=== PATIENT | male | born 1965 | race Caucasian/White ===

== ENCOUNTER 2017-05-13 07:34 | Emergency (ER) | payer MEDICARE, OTHER ==
[~2017-05-13] VITALS: Ht 180.3 cm; Wt 72.6 kg
[~2017-05-13 07:34] MED LIST: ACET500; AMOCLA875 PO; ANTOXYBENA BOTHEARS; ASPI325EC PO; ATOR10 PO; Amoxicillin500 MG PO; CARB200; CYCL10 PO; DIAZ5; DIAZ5 PO; HYDACE10B PO; HYDMOR2; HYDMOR4 PO; Humalog100 UNIT/3; IBUP800 PO; INSLI100I SC; INSLIS75I; INSLIS75I SC; INSULANI SC; INSULANI SQ; INSULANPEN SC; LAMO100; LEVFLO500 PO; LISI5; METO50 PO; MORP30ER; MORP30ER PO; NAPR500 PO; NAPR550 PO; OXYACE5T PO; OXYC10TA19 PO; OXYC5 PO; OXYCODONE PO; PHENY100ER PO; PROM25 PO; PROM25S PR; Percocet 5-3251 EACH PO; TRAM50; TRAM50 PO; Ultram50 MG PO
[2017-05-13] MEDS ORDERED: TOUJEO SOL300 UNIT/1 (07:54)
[2017-05-13] MEDS ORDERED: Roxicodone15 MG PO (07:55)
[2017-05-13] MEDS ORDERED: Omeprazole20 M1 PO (07:55)
[2017-05-13] MEDS ORDERED: ERYT1OIN LEFTEYE (08:36)
[2017-05-13] MEDS ORDERED: Norco 5-325 Ta1 EACH PO (08:36)
== END 2017-05-13 08:50 | disposition home or self-care (01) ==
LOC: ER 07:34
DX: S05.02XA Injury of conjunctiva and corneal abrasion without foreign body, left eye, initial encounter (principal); E11.9 Type 2 diabetes mellitus without complications; F17.200 Nicotine dependence, unspecified, uncomplicated; Z91.041 Radiographic dye allergy status; Z88.5 Allergy status to narcotic agent; Z79.899 Other long term (current) drug therapy; Z79.4 Long term (current) use of insulin; X58.XXXA Exposure to other specified factors, initial encounter
CPT/HCPCS: 99283

== ENCOUNTER 2017-05-13 15:25 | Emergency (ER) | payer MEDICARE, OTHER ==
[~2017-05-13] VITALS: Ht 180.3 cm; Wt 72.6 kg
[~2017-05-13 15:25] MED LIST changes: +ERYT1OIN LEFTEYE; +Norco 5-325 Ta1 EACH PO; +Omeprazole20 M1 PO; +Roxicodone15 MG PO; +TOUJEO SOL300 UNIT/1
== END 2017-05-13 16:40 | disposition home or self-care (01) ==
LOC: ER 15:25
DX: S05.02XA Injury of conjunctiva and corneal abrasion without foreign body, left eye, initial encounter (principal); E11.9 Type 2 diabetes mellitus without complications; F17.200 Nicotine dependence, unspecified, uncomplicated; Z91.041 Radiographic dye allergy status; Z88.5 Allergy status to narcotic agent; Z79.899 Other long term (current) drug therapy; Z79.4 Long term (current) use of insulin; X58.XXXA Exposure to other specified factors, initial encounter
CPT/HCPCS: 96372; 99283; J1885

== ENCOUNTER → 2017-08-17 | Outpatient (CLI) | payer MEDICARE, OTHER ==
[2017-08-17 11:07] LABS: BASOPHILS ABSOLUTE AUTO 0.04 K/mm3 (0.00-0.23); BASOPHILS PERCENT AUTO 1 % (0-2); EOSINOPHILS ABSOLUTE AUTO 0.14 K/mm3 (0.00-0.68); EOSINOPHILS PERCENT AUTO 2 % (0-6); Hematocrit 39.8 % (37.0-53.0); Hemoglobin 14.4 g/dL (13.5-17.5); IMMATURE GRAN ABSOLUTE AUTO 0.02 K/mm3 (0.00-0.10); IMMATURE GRAN PERCENT AUTO 0 % (0-1); LYMPHOCYTES ABSOLUTE AUTO 2.04 K/mm3 (0.84-5.20); LYMPHOCYTES PERCENT AUTO 29 % (21-46); MONOCYTES ABSOLUTE AUTO 0.61 K/mm3 (0.16-1.47); MONOCYTES PERCENT AUTO 9 % (4-13); Mean Corpuscular HGB 33.6 pg (26.0-34.0); Mean Corpuscular HGB Conc 36.2 g/dL (31.5-36.5); Mean Corpuscular Volume 93 fL (80-100); Mean Platelet Volume 10.6 fL (9.1-12.4); NEUTROPHILS ABSOLUTE AUTO 4.23 K/mm3 (1.96-9.15); NEUTROPHILS PERCENT AUTO 60 % (41-73); Platelet Count 216 K/mm3 (150-400); RDW Coefficient Variation 12.5 % (11.7-14.2); RDW Standard Deviation 42.4 fL (35.1-46.3); Red Blood Cell Count 4.29 M/mm3 (4.30-5.90); White Blood Cell Count 7.08 K/mm3 (4.00-11.30)
[2017-08-17 11:25] LABS: Alanine Aminotransfer (ALT/SGP 47 U/L (12-78); Albumin/Globulin Ratio 1.4 (0.8-1.8); Alk Phos 50 U/L (40-126); Amylase, Blood 52 U/L (25-115); Anion Gap 6 mmol/L (6-16); Aspartate Aminotrans (AST/SGOT 38 U/L (12-37); Bilirubin, Total 0.4 mg/dL (0.1-1.0); Blood Urea Nitrogen 17 mg/dL (8-24); CO2, Blood 28 mmol/L (21-32); Calcium, Blood 8.7 mg/dL (8.5-10.1); Chloride, Blood 102 mmol/L (98-108); Creatinine, Blood 0.85 mg/dL (0.60-1.20); Globulin, Blood 2.9 g/dL (2.2-4.0); Glomerular Filtration Rate >60 (60-); Glucose, Blood 204 mg/dL (70-99); Potassium, Blood 4.4 mmol/L (3.5-5.5); Sodium, Blood 136 mmol/L (136-145); Total Protein, Blood 6.9 g/dL (6.4-8.2)
== END | disposition home or self-care (01) ==
LOC: LAB SHORT 11:01 → LAB EV 11:01
PROVIDERS: General Practice
DX: E10.65 Type 1 diabetes mellitus with hyperglycemia (principal)
CPT/HCPCS: 80053; 82150; 83690; 85025

== ENCOUNTER 2018-03-07 07:54 | Day surgery (SDC) | payer MEDICARE, OTHER ==
[~2018-03-07] VITALS: Ht 180.3 cm; Wt 76.7 kg
[~2018-03-07 07:54] MED LIST changes: -TOUJEO SOL300 UNIT/1; +TOUJEO SOL300 UNIT/1 SC
--- NOTE | 2018-03-07 08:43 | NUR ---
03/07/18 0843 Catrina Chand V PT RESTING IN BED, SIDE RAILS IN PLACE, CALL LIGHT WITHIN REACH, VSS. PT DENIES ANY QUESTIONS AT THIS TIME.
== END 2018-03-07 09:58 | disposition home or self-care (01) ==
LOC: ORSCSDS 07:54
PROVIDERS: Surgery
PROC: 0DBN8ZX Excision of Sigmoid Colon, Via Natural or Artificial Opening Endoscopic, Diagnostic (ICD-10-PCS; principal; 2018-03-07 09:15)
DX: Z12.11 Encounter for screening for malignant neoplasm of colon (principal); D12.5 Benign neoplasm of sigmoid colon; Z86.010 Personal history of colon polyps; E10.9 Type 1 diabetes mellitus without complications; I48.0 Paroxysmal atrial fibrillation; I10 Essential (primary) hypertension; F17.210 Nicotine dependence, cigarettes, uncomplicated; Z79.4 Long term (current) use of insulin
CPT/HCPCS: 82947; 88305; J7120

== ENCOUNTER 2019-01-25 20:00 | Emergency (ER) | payer MEDICARE, OTHER ==
[~2019-01-25] VITALS: Ht 180.3 cm; Wt 74.8 kg
== END 2019-01-25 21:08 | disposition home or self-care (01) ==
LOC: ER 20:00
DX: S63.283A Dislocation of proximal interphalangeal joint of left middle finger, initial encounter (principal); E11.9 Type 2 diabetes mellitus without complications; F17.200 Nicotine dependence, unspecified, uncomplicated; Z91.041 Radiographic dye allergy status; Z88.5 Allergy status to narcotic agent; Z79.4 Long term (current) use of insulin; W01.0XXA Fall on same level from slipping, tripping and stumbling without subsequent striking against object, initial encounter
CPT/HCPCS: 26770; 73120; 73140; 99283-25

== ENCOUNTER 2019-10-27 19:50 | Emergency (ER) | payer MEDICARE ==
[~2019-10-27] VITALS: Ht 177.8 cm; Wt 63.5 kg
[2019-10-27 20:20] LABS: Source, Urine Clean Catch
[2019-10-27 20:23] LABS: Bilirubin, Urine Neg (Neg); Blood, Urine Neg (Neg); Glucose Qualitative, Urine Neg (Neg); Ketones, Urine Neg (Neg); Leukocyte Esterase, Urine Neg (Neg); Nitrite, Urine Neg (Neg); Protein, Urine Neg (Neg); Specific Gravity, Urine 1.005 (1.003-1.022); Urobilinogen, Urine NORM (Normal)
[2019-10-27 20:24] LABS: BASOPHILS ABSOLUTE AUTO 0.06 K/mm3 (0.00-0.23); BASOPHILS PERCENT AUTO 1 % (0-2); EOSINOPHILS ABSOLUTE AUTO 0.29 K/mm3 (0.00-0.68); EOSINOPHILS PERCENT AUTO 4 % (0-6); Hematocrit 42.6 % (37.0-53.0); Hemoglobin 14.5 g/dL (13.5-17.5); IMMATURE GRAN ABSOLUTE AUTO 0.02 K/mm3 (0.00-0.10); IMMATURE GRAN PERCENT AUTO 0 % (0-1); LYMPHOCYTES PERCENT AUTO 33 % (21-46); MONOCYTES ABSOLUTE AUTO 0.62 K/mm3 (0.16-1.47); MONOCYTES PERCENT AUTO 8 % (4-13); Mean Corpuscular Volume 97 fL (80-100); Mean Platelet Volume 10.5 fL (9.1-12.4); NEUTROPHILS ABSOLUTE AUTO 3.96 K/mm3 (1.96-9.15); NEUTROPHILS PERCENT AUTO 54 % (41-73); Platelet Count 204 K/mm3 (150-400); RDW Coefficient Variation 12.7 % (11.7-14.2); Red Blood Cell Count 4.39 M/mm3 (4.30-5.90); White Blood Cell Count 7.35 K/mm3 (4.00-11.30)
[2019-10-27 20:27] LABS: Appearance, Urine Clear (Clear); Color, Urine Pale Yellow (P-Yellow)
[2019-10-27 20:36] LABS: Alanine Aminotransfer (ALT/SGP 42 U/L (12-78); Albumin, Blood 4.2 g/dL (3.4-5.0); Albumin/Globulin Ratio 1.5 (0.8-1.8); Alk Phos 48 U/L (50-136); Anion Gap 8 mmol/L (6-16); Aspartate Aminotrans (AST/SGOT 35 U/L (12-37); Bilirubin, Total 0.2 mg/dL (0.1-1.0); Blood Urea Nitrogen 19 mg/dL (8-24); Bun/Creatinine Ratio 26.1 (12.0-20.0); CO2, Blood 25 mmol/L (21-32); Calcium, Blood 8.8 mg/dL (8.5-10.1); Chloride, Blood 108 mmol/L (98-108); Creatinine, Blood 0.73 mg/dL (0.60-1.20); Globulin, Blood 2.8 g/dL (2.2-4.0); Glomerular Filtration Rate >60 (60-); Glucose, Blood 209 mg/dL (70-99); Potassium, Blood 3.7 mmol/L (3.5-5.5); Sodium, Blood 141 mmol/L (136-145)
== END 2019-10-27 21:15 | disposition home or self-care (01) ==
LOC: ER 19:50
PROVIDERS: Emergency Medicine
DX: E11.649 Type 2 diabetes mellitus with hypoglycemia without coma (principal); I48.91 Unspecified atrial fibrillation; F17.200 Nicotine dependence, unspecified, uncomplicated; Z91.041 Radiographic dye allergy status; Z88.5 Allergy status to narcotic agent; Z79.4 Long term (current) use of insulin
CPT/HCPCS: 36415; 80053; 81003; 82947; 84484; 85025; 93005; 93010; 99284-25

== ENCOUNTER 2022-04-21 21:06 | Emergency (ER) | payer MEDICARE, OTHER ==
[~2022-04-21] VITALS: Ht 180.3 cm; Wt 74.8 kg
== END 2022-04-21 21:37 | disposition left against medical advice (07) ==
LOC: ER 21:06
DX: R56.9 Unspecified convulsions (principal); E11.9 Type 2 diabetes mellitus without complications; Z53.21 Procedure and treatment not carried out due to patient leaving prior to being seen by health care provider
CPT/HCPCS: 82947; 93005; 93010

== ENCOUNTER → 2023-05-23 | Outpatient (CLI) | payer MEDICARE, OTHER | LOC: LAB 07:33 → LAB SHORT 07:33 | DX: B35.1 Tinea unguium (principal); L60.2 Onychogryphosis | CPT/HCPCS: 88305; 88312 ==

== ENCOUNTER 2024-06-12 07:55 | Day surgery (SDC) | payer MEDICARE, OTHER ==
[~2024-06-12] VITALS: Ht 180.3 cm; Wt 74.2 kg
[~2024-06-12 07:55] MED LIST changes: +Lactated Ringer's 1,000 ML IV ONE; +propofoL 50 ML IV ONE
[2024-06-12] MEDS ORDERED: Lactated Ringer's 1,000 ML IV ONE (09:56)
[2024-06-12 11:32] VITALS: BP 154/86
--- NOTE | 2024-06-12 11:37 | NUR ---
06/12/24 1137 Lizeth Good AFTER LUNGS AUSCULTATED, PATIENT PROVIDED APPLE JUICE AT 1104. PATIENT FINISHED APPLE JUICE AND HIS INSULIN PUMP REPORTED 75. PER PATIENT HE STATED "IT TAKES A FEW MINNUTES TO IMPROVE, ITLL BE FINE, i'LL GO GET A SNACK." PATIENT DRESSED AND WAS OFFERED MORE APPLE JUICE AND SNACKS THAT [facility] HAS INCLUDING STRING CHEESE AND CRACKERS AND COOKIES AND PATIENT CONSISTENTLY REFUSED. PATIENT REPORTED AT 1120 THAT "I AM FEELING BETTER, IT'LL GO UP, I WILL EAT SOMETHING ON THE WAY HOME." PATIENT STATED "I HAVE TO GET HOME." PATIENT ASSISTED OUT TO CAR IN WC. RN ENCOURAGED PATIENT TO GET SOMETHING TO EAT VERY SOON.
== END 2024-06-12 11:25 | disposition home or self-care (01) ==
LOC: ORSCSDS 07:55
PROVIDERS: Surgery
PROC: 0DBM8ZX Excision of Descending Colon, Via Natural or Artificial Opening Endoscopic, Diagnostic (ICD-10-PCS; principal; 2024-06-12 09:15)
PROC: 0DBK8ZX Excision of Ascending Colon, Via Natural or Artificial Opening Endoscopic, Diagnostic (ICD-10-PCS; principal; 2024-06-12 09:15)
DX: Z12.11 Encounter for screening for malignant neoplasm of colon (principal); Z86.0100 Personal history of colon polyps, unspecified; D12.2 Benign neoplasm of ascending colon; D12.4 Benign neoplasm of descending colon; E11.9 Type 2 diabetes mellitus without complications; R56.9 Unspecified convulsions; F17.210 Nicotine dependence, cigarettes, uncomplicated; Z79.4 Long term (current) use of insulin
CPT/HCPCS: 82947; 88305; J2704; J7120